=== PATIENT | female | born 1975 | race Caucasian/White ===

== ENCOUNTER 2019-05-21 10:57 | Emergency (ER) | payer BC, OTHER ==
[2019-05-21 12:24] LABS: ADD MAN DIFF? NO
[2019-05-21 12:30] LABS: BASOPHIL # 0.1 10^3/ul (0.0-0.1); EOSINOPHILS # 0.1 10^3/ul (0.0-0.5); EOSINOPHILS % 2.1 % (0.0-7.0); HEMATOCRIT 32.7 % (37.0-47.0); HEMOGLOBIN 9.8 g/dl (12.0-16.0); LYMPHOCYTES # 2.1 10^3/ul (0.8-2.9); LYMPHOCYTES % 33.8 % (15.0-51.0); MEAN CORPUSCULAR HEMOGLOBIN 25.3 pg (29.0-33.0); MEAN CORPUSCULAR VOLUME 84.5 fl (82.0-101.0); MONOCYTE # 0.5 10^3/ul (0.3-0.9); MONOCYTES % 7.3 % (0.0-11.0); NEUTROPHIL # 3.5 10^3/ul (1.6-7.5); NEUTROPHILS % 55.5 % (39.0-77.0); PLATELET COUNT 469 10^3/UL (140-415); RED BLOOD COUNT 3.87 10^6/ul (4.20-5.40); RED CELL DISTRIBUTION WIDTH 15.4 % (11.5-14.5)
[2019-05-21 12:30] LABS: WHITE BLOOD COUNT 6.3 10^3/ul (4.8-10.8)
[2019-05-21 12:43] LABS: ANION GAP 9 (5-13); BLOOD UREA NITROGEN 9 mg/dl (7-20); CALCIUM 9.6 mg/dl (8.4-10.2); CARBON DIOXIDE 27 mmol/L (21-31); CHLORIDE 103 mmol/L (97-110); Estimated GFR > 60 mL/min (>60); GLUCOSE 94 mg/dl (70-220); POTASSIUM 4.1 mmol/L (3.5-5.1); SODIUM 139 mmol/L (135-144)
== END 2019-05-21 14:11 | disposition home or self-care (01) ==
LOC: E/R 10:57
DX: R20.0 Anesthesia of skin (principal); R07.9 Chest pain, unspecified
CPT/HCPCS: 36415; 70450; 80048; 81025; 85025; 93005; 99284-25